=== PATIENT | male | born 1970 | race African-American/Black ===

== ENCOUNTER 2016-12-29 22:26 | Inpatient (IN) | payer OTHER ==
[~2016-12-29] VITALS: Ht 175.3 cm; Wt 144.2 kg
--- NOTE | ~2016-12-29 | O ---
[facility] [place] [address] OPERATIVE REPORT Name: AGUSTIN OSBORN Room #: 302-P [facility] IN M.R.#: [id number] Admission: 12/30/16 Attend Phys: Chris Lerma MD Discharge: Date of : 68 Report #: [id number] THIS REPORT FOR: //name// CC: Chris Lerma NO PCP PREOPERATIVE DIAGNOSIS: Left ureteral stone. POSTOPERATIVE DIAGNOSIS: Left ureteral stone. PROCEDURES: Cystoscopy, left ureteroscopy with holmium laser ablation of left ureteral stone. SURGEON: Ace Alvarado M.D. ANESTHESIA: General. INDICATIONS: The patient is a very pleasant 46-year-old gentleman with persistent left flank pain and nausea due to a left proximal ureteral stone. He has been counseled with respect to treatment options and has opted for endoscopic management given the fact that he has failed medical management. Risks, benefits and complications have been discussed in detail. He understands risks of sepsis and bleeding. He understands complications could occur, which may not have been foreseen or discussed. He is anxious to proceed as outlined. SURGICAL PROCEDURE: After obtaining informed consent, he was brought to the operating room where general anesthetic was administered. He was prepped and draped in lithotomy position by the operating personnel under anesthesia supervision. Preliminary fluoroscopic images showed possible opacity overlying the sacrum. However, it was really hard to say for sure whether or not this was a stone. A 21-[place] ACMI cystoscope was introduced under direct vision. The anterior urethra was normal. The prostatic urethra was short and nonobstructive. Upon entering the bladder, the trigone and ureters were normal in configuration and location. Glidewire was placed into the left ureter and into the left renal pelvis. I could feel when the Glidewire went by the stone, and there was a torre of debris and dried blood from the ureter as though the ureter had been decompressed. The ureteral orifice itself was pinpoint. I dilated it to 15-[place] at 10 atmospheres using the 4-cm balloon. I then used a 6.9-[place] semirigid ureteroscope to access the ureter alongside the ZIPwire. I ultimately identified the stone above the iliac vessels in the proximal ureter in a location consistent with a CAT scan. I used the 365 micron holmium laser fiber to break the stone into numerable fragments. There were no fragments retrievable at this point. Essentially, the stone was turned to dust. I then removed the ureteroscope and backloaded the wire through the cystoscope and placed a 6-[place] x 26 cm contour stent, the proximal curls overlying the left kidney. The distal curl was in the bladder. [address] [address] OPERATIVE REPORT Name: AGUSTIN OSBORN Room #: 302-P [facility] IN M.R.#: [id number] Admission: 12/30/16 Attend Phys: Chris Lerma MD Discharge: Date of : 68 Report #: [id number] The patient was ultimately transferred to the recovery room where he arrived in stable condition. The findings were shared with his significant other. I did do a digital rectal exam before leaving the operating room. Prostate was grade 1-2 and benign. By: [id number] Ace Alvarado MD /nt
[2016-12-29 22:41] VITALS: BP 164/105
[2016-12-29 23:48] LABS: HEMATOCRIT 45.7 % (42.0-52.0); HEMOGLOBIN 15.2 gm/dL (14.0-18.0); MANUAL DIFF YES; MCH 29.4 pg (26.0-34.0); MCHC 33.2 g/dL (28.0-37.0); MCV 88.5 fL (80.0-100.0); PLATELET COUNT 198 thou/uL (150-400); RBC 5.17 mil/uL (4.50-6.00); WBC 13.9 thou/uL (4.0-11.0)
[2016-12-30] LABS: CALCIUM 9.1 mg/dL (8.5-10.1); CREATININE 1.6 mg/dL (0.7-1.3); POTASSIUM 4.3 mmol/L (3.5-5.1)
[2016-12-30 00:04] LABS: ALBUMIN 3.9 g/dL (3.4-5.0); DIRECT BILIRUBIN 0.1 mg/dL (<0.1-0.3); TOTAL BILIRUBIN 0.6 mg/dL (<0.1-1.0); TOTAL PROTEIN 8.6 g/dL (6.4-8.2)
[2016-12-30 00:25] LABS: ABSOLUTE NEUTROPHILS 12.4 thou/uL (1.4-8.2); TOTAL CELL COUNT 100
[2016-12-30 00:29] LABS: URINE BILIRUBIN NEGATIVE (Negative); URINE BLOOD 2+ (Negative); URINE COLOR YELLOW; URINE GLUCOSE-RANDOM* 2+ (Negative); URINE KETONES NEGATIVE (Negative); URINE NITRITE NEGATIVE (Negative); URINE PROTEIN (DIPSTICK) NEGATIVE (Negative); URINE UROBILINOGEN 0.2 E.U./dl (0.2-1.0)
[2016-12-30 00:51] LABS: BACTERIA None Seen /HPF (None Seen); CASTS None Seen /LPF (None Seen); SQUAMOUS 4-10 Moderate /LPF (0-3); URINE RBC 0-2 Rare /HPF (0-2); URINE WBC 0-5 Rare /HPF (0-5)
[2016-12-30 00:52] LABS: CRYSTALS None Seen /LPF (None Seen)
[2016-12-30 02:22] VITALS: BP 161/96
[2016-12-30 02:38] VITALS: BP 161/96
[2016-12-30 03:00] VITALS: BP 126/58
[2016-12-30 08:27] VITALS: BP 124/85
[2016-12-30 15:14] VITALS: BP 124/65
[2016-12-30 19:40] VITALS: BP 110/53
[2016-12-31 03:40] VITALS: BP 138/84
[2016-12-31 04:06] LABS: HEMATOCRIT 41.7 % (42.0-52.0); HEMOGLOBIN 13.7 gm/dL (14.0-18.0); MCH 29.2 pg (26.0-34.0); MCHC 32.9 g/dL (28.0-37.0); MCV 88.8 fL (80.0-100.0); RBC 4.7 mil/uL (4.50-6.00); RDW 14.2 % (10.5-14.5); WBC 10.5 thou/uL (4.0-11.0)
[2016-12-31 04:07] LABS: CALCIUM 7.8 mg/dL (8.5-10.1); CREATININE 1.8 mg/dL (0.7-1.3); POTASSIUM 3.6 mmol/L (3.5-5.1)
[2016-12-31 07:38] VITALS: BP 163/109
[2016-12-31 16:08] VITALS: BP 137/88
[2016-12-31 20:00] VITALS: BP 157/97
[2017-01-01 04:00] VITALS: BP 158/93
[2017-01-01 08:29] VITALS: BP 151/106
[2017-01-01 09:53] LABS: HEMATOCRIT 41.4 % (42.0-52.0); HEMOGLOBIN 13.5 gm/dL (14.0-18.0); MCHC 32.7 g/dL (28.0-37.0); MCV 88.8 fL (80.0-100.0); RBC 4.66 mil/uL (4.50-6.00); RDW 13.9 % (10.5-14.5); WBC 12.2 thou/uL (4.0-11.0)
[2017-01-01 10:04] LABS: CALCIUM 8.2 mg/dL (8.5-10.1); CREATININE 1.7 mg/dL (0.7-1.3); POTASSIUM 4.1 mmol/L (3.5-5.1)
[2017-01-01 15:02] VITALS: BP 162/94
[2017-01-01 19:07] VITALS: BP 120/66
[2017-01-02 04:49] VITALS: BP 138/82
[2017-01-02 08:20] VITALS: BP 152/77
[2017-01-02 17:30] VITALS: BP 99/41
[2017-01-02 23:56] VITALS: BP 148/84
[2017-01-03 03:40] VITALS: BP 154/89
[2017-01-03 05:43] LABS: GLYCOHEMOGLOBIN (HGB A1C) 6.9 % (4.8-5.6)
[2017-01-03 08:00] VITALS: BP 163/98
[2017-01-03 09:35] LABS: HEMATOCRIT 41.8 % (42.0-52.0); HEMOGLOBIN 13.3 gm/dL (14.0-18.0); MCH 28.5 pg (26.0-34.0); MCHC 31.8 g/dL (28.0-37.0); MCV 89.8 fL (80.0-100.0); RBC 4.65 mil/uL (4.50-6.00); RDW 13.9 % (10.5-14.5); WBC 10.8 thou/uL (4.0-11.0)
[2017-01-03 09:43] LABS: CALCIUM 8.6 mg/dL (8.5-10.1); CREATININE 1.2 mg/dL (0.7-1.3); POTASSIUM 4.2 mmol/L (3.5-5.1)
[2017-01-03] MEDS ORDERED: FLOMAX0.4 MG PO (09:55)
[2017-01-03] MEDS ORDERED: HYDROCODON-ACE1 EAC7 PO (09:56)
[2017-01-03 10:03] VITALS: BP 163/98
== END 2017-01-03 10:44 | disposition home or self-care (01) | DRG 660 ==
LOC: ER 22:26 → 3N 12-30 02:13 → EROBS 12-30 02:13 → 3N 12-30 02:39
PROVIDERS: Emergency Medicine; Internal Medicine
PROC: 0T578ZZ Destruction of Left Ureter, Via Natural or Artificial Opening Endoscopic (ICD-10-PCS; principal; 2017-01-02)
PROC: 0T778DZ Dilation of Left Ureter with Intraluminal Device, Via Natural or Artificial Opening Endoscopic (ICD-10-PCS; principal; 2017-01-02)
DX: N20.1 Calculus of ureter (principal); N17.9 Acute kidney failure, unspecified; E11.9 Type 2 diabetes mellitus without complications; N18.9 Chronic kidney disease, unspecified; D72.829 Elevated white blood cell count, unspecified; Z79.4 Long term (current) use of insulin
CPT/HCPCS: 10094; 50010; 50101; 50164; 51179; 51620; 51767; 56815; 62110; 62900; 70005